=== PATIENT | male | born 1975 | race Hispanic/Latino ===

== ENCOUNTER 2023-04-21 11:07 | Inpatient (IN) | payer OTHER ==
[~2023-04-21] VITALS: Ht 165.1 cm; Wt 70.4 kg
[~2023-04-21 11:07] MED LIST: GLYB-171 PO; TELM40TA8 PO
[2023-04-21 12:30] LABS: BASOPHILS % (AUTO) 0.3 % (0.0-5.0); EOSINOPHILS % (AUTO) 0.7 % (0.0-8.0); LYMPHOCYTES % (AUTO) 16.9 % (21.0-51.0); MEAN CORPUSCULAR HEMOGLOBIN 28.8 pg (27.0-33.0); MEAN CORPUSCULAR HGB CONC 33.7 g/dL (32.0-36.0); MEAN CORPUSCULAR VOLUME 85.5 fL (79-99); MONOCYTES % (AUTO) 7.8 % (3.0-13.0); PLATELET COUNT (AUTO) 163 K/uL (130-400); RED BLOOD CELL COUNT(AUTO) 5.03 MIL/uL (4.50-6.20); RED CELL DISTRIBUTION WIDTH 12.9 % (11.0-15.5); WHITE BLOOD COUNT (AUTO) 11.7 K/uL (4.8-10.8)
[2023-04-21 12:43] LABS: POTASSIUM 4.2 mmol/L (3.5-5.1)
[2023-04-21 12:48] LABS: ALBUMIN 3.6 g/dL (3.5-5.0); TOTAL PROTEIN, SERUM 8.3 g/dL (6.0-8.3)
[2023-04-21 12:58] LABS: APPEARANCE,URINE CLEAR (CLEAR); BILIRUBIN,URINE NEGATIVE (NEGATIVE); COLOR,URINE LIGHT-YELLOW (YELLOW); GLUCOSE, URINE (UA) >=1000 mg/dL (NEGATIVE); KETONES,URINE 40 mg/dL (NEGATIVE); LEUKOCYTE ESTERASE ,URINE NEGATIVE Leu/uL (NEGATIVE); NITRATE,URINE NEGATIVE (NEGATIVE); OCCULT BLOOD,URINE NEGATIVE (NEGATIVE); PH,URINE 5.5 (5.0-8.0); PROTEIN,URINE 20 mg/dL (NEGATIVE); UROBILINOGEN,URINE 0.2 mg/dL (0.2-1.0)
[2023-04-21 13:00] LABS: RBC,URINE 0-1 /HPF (0-1); WBC,URINE 0-1 /HPF (0-1)
[2023-04-21] MEDS ORDERED: CEFTRIAXONE 1G VIAL IVPB ONE (13:00)
[2023-04-21] MEDS ORDERED: 0.9%NACL 1000ML 1,000 ML IV ONE (13:00)
[2023-04-21] MEDS ORDERED: INSULIN HUMULIN R 100 UNIT/ML 3ML IV SCH (13:30)
[2023-04-21] MEDS ORDERED: LEVO750T68 PO (13:52)
[2023-04-21] MEDS ORDERED: ALBUHFA IH (13:52)
[2023-04-21] MEDS ORDERED: BENZ200C53 PO (13:52)
[2023-04-21] MEDS ORDERED: IOHEXOL 350 MG/ML 100ML INFUS..BTL IV ONE (14:57)
[2023-04-21 17:38] LABS: MAGNESIUM 1.8 mg/dL (1.80-2.40)
[2023-04-21 17:55] LABS: CHOLESTEROL 290 mg/dL (<200); HDL CHOLESTEROL 24 mg/dL (29-71); LDL DIRECT 98 mg/dL (0-99); TRIGLYCERIDES 766 mg/dL (30-200)
[2023-04-21] MEDS ORDERED: ACETAMINOPHEN 500 MG TABLET ONE (18:50)
[2023-04-21] MEDS ORDERED: ACETAMINOPHEN 500 MG TABLET PO ONE (19:00)
[2023-04-21] MEDS ORDERED: MORPHINE 2 MG SYG IVP PRN (20:00)
[2023-04-21] MEDS ORDERED: KETOROLAC 15MG/ML VIAL (15MG/ML) IV PRN (20:00)
[2023-04-21] MEDS ORDERED: ACETAMINOPHEN 500 MG TABLET PO PRN (20:00)
[2023-04-21] MEDS ORDERED: FISH1CAP20 PO (20:22)
[2023-04-21] MEDS ORDERED: TELM40TA8 PO (20:22)
[2023-04-21] MEDS ORDERED: METF-444 PO (20:22)
[2023-04-21] MEDS ORDERED: ONDANSETRON 4MG INJ IVP PRN (20:30)
[2023-04-21] MEDS ORDERED: GLUCAGON 1MG KIT 1 MG ML IM PRN (20:30)
[2023-04-21] MEDS ORDERED: DEXTROSE 50%-WATER 50 ML DISP.SYRIN IV PRN (20:30)
[2023-04-21] MEDS ORDERED: INSULIN HUMULIN R 100 UNIT/ML 3ML SQ SCH (20:30)
[2023-04-21] MEDS: PANTOPRAZOLE 40 MG/VIAL IVP SCH (20:56)
[2023-04-21] MEDS: 0.9%NACL 1000ML 1,000 ML IV SCH (20:56)
[2023-04-21] MEDS: CEFTRIAXONE 1G VIAL IVPB SCH (21:54)
[2023-04-21] MEDS: METRONIDAZOLE 500MG/100ML BAG 100 ML IVPB SCH (22:02)
[2023-04-21 22:37] LABS: CREATINE KINASE, TOTAL 29 U/L (21-232); MYOGLOBIN 29 ng/mL (10-92)
[2023-04-22] VITALS (7 sets, daily range): BP systolic 125–149; BP diastolic 78–86
[2023-04-22] MEDS: 0.9%NACL 1000ML 1,000 ML IV SCH ×2 (03:02→21:56)
[2023-04-22 05:12] LABS: BASOPHILS % (AUTO) 0.2 % (0.0-5.0); EOSINOPHILS % (AUTO) 1.9 % (0.0-8.0); HEMATOCRIT 36.1 % (42-54); LYMPHOCYTES % (AUTO) 18.9 % (21.0-51.0); MEAN CORPUSCULAR HEMOGLOBIN 28.8 pg (27.0-33.0); MEAN CORPUSCULAR HGB CONC 33.8 g/dL (32.0-36.0); MEAN CORPUSCULAR VOLUME 85.1 fL (79-99); MONOCYTES % (AUTO) 9.7 % (3.0-13.0); NEUTROPHILS % (AUTO) 68.9 % (40.0-77.0); PLATELET COUNT (AUTO) 143 K/uL (130-400); RED BLOOD CELL COUNT(AUTO) 4.24 MIL/uL (4.50-6.20); RED CELL DISTRIBUTION WIDTH 12.8 % (11.0-15.5); WHITE BLOOD COUNT (AUTO) 8.5 K/uL (4.8-10.8)
[2023-04-22] MEDS: METRONIDAZOLE 500MG/100ML BAG 100 ML IVPB SCH ×3 (05:14→21:56)
[2023-04-22] MEDS: INSULIN HUMULIN R 100 UNIT/ML 3ML SQ SCH ×4 (05:50→22:13)
[2023-04-22 05:52] LABS: ALBUMIN 2.9 g/dL (3.5-5.0); CREATININE 0.8 mg/dL (0.5-1.5); MAGNESIUM 1.7 mg/dL (1.80-2.40); POTASSIUM 3.8 mmol/L (3.5-5.1); TOTAL PROTEIN, SERUM 7.2 g/dL (6.0-8.3)
[2023-04-22 06:13] LABS: CRP QUANTITATIVE 256.2 mg/L (0.00-9.0)
[2023-04-22] MEDS ORDERED: MAGNESIUM 2GM PREMIX 50ML 50 ML IV PRN (08:30)
[2023-04-22] MEDS: CEFTRIAXONE 1G VIAL IVPB SCH ×2 (08:47→21:55)
[2023-04-22] MEDS ORDERED: IOHEXOL 350 MG/ML 100ML INFUS..BTL IV ONE (12:20)
[2023-04-22] MEDS: HEPARIN 5,000 UNIT VIAL SQ SCH ×2 (12:59→22:14)
[2023-04-22] MEDS: FENOFIBRATE NANOCRYSTALLIZED 145 MG TAB PO SCH (13:00)
[2023-04-22] MEDS ORDERED: ATORVASTATIN 40 MG TABLET PO SCH (21:00)
[2023-04-22] MEDS: PANTOPRAZOLE 40 MG/VIAL IVP SCH (21:55)
[2023-04-23 03:30] VITALS: BP 121/68
[2023-04-23 04:59] LABS: HEMATOCRIT 34.6 % (42-54); MEAN CORPUSCULAR HEMOGLOBIN 28.9 pg (27.0-33.0); MEAN CORPUSCULAR HGB CONC 33.8 g/dL (32.0-36.0); MEAN CORPUSCULAR VOLUME 85.4 fL (79-99); RED BLOOD CELL COUNT(AUTO) 4.05 MIL/uL (4.50-6.20); RED CELL DISTRIBUTION WIDTH 12.6 % (11.0-15.5); WHITE BLOOD COUNT (AUTO) 7.7 K/uL (4.8-10.8)
[2023-04-23 05:27] LABS: ALBUMIN 2.7 g/dL (3.5-5.0); CREATININE 0.8 mg/dL (0.5-1.5); POTASSIUM 3.6 mmol/L (3.5-5.1); TOTAL PROTEIN, SERUM 6.7 g/dL (6.0-8.3)
[2023-04-23] MEDS: INSULIN HUMULIN R 100 UNIT/ML 3ML SQ SCH ×2 (05:56→12:00)
[2023-04-23 06:09] LABS: CRP QUANTITATIVE 235.5 mg/L (0.00-9.0)
[2023-04-23] MEDS: METRONIDAZOLE 500MG/100ML BAG 100 ML IVPB SCH (06:26)
[2023-04-23] MEDS: 0.9%NACL 1000ML 1,000 ML IV SCH (06:27)
[2023-04-23 08:00] VITALS: BP 133/78
[2023-04-23] MEDS: HEPARIN 5,000 UNIT VIAL SQ SCH (09:00)
[2023-04-23] MEDS: FENOFIBRATE NANOCRYSTALLIZED 145 MG TAB PO SCH (09:23)
[2023-04-23] MEDS: CEFTRIAXONE 1G VIAL IVPB SCH (09:23)
[2023-04-23] MEDS ORDERED: AMOX1TAB16 PO (11:58)
[2023-04-23] MEDS ORDERED: FENO160T16 PO (11:58)
[2023-04-23] MEDS ORDERED: ATOR40TA69 PO (11:58)
[2023-04-23 12:00] VITALS: BP 130/68
== END 2023-04-23 15:05 | disposition home or self-care (01) | DRG 439 ==
LOC: EDH 11:07 → EDHIP 19:42 → 4BH 04-22 00:30
PROVIDERS: ADMIT Hospitalist; ATTEND Hospitalist
DX: K85.30 Drug induced acute pancreatitis without necrosis or infection (principal); E87.1 Hypo-osmolality and hyponatremia; Z20.822 Contact with and (suspected) exposure to COVID-19; E11.65 Type 2 diabetes mellitus with hyperglycemia; E78.1 Pure hyperglyceridemia; E78.5 Hyperlipidemia, unspecified; E86.0 Dehydration; E86.1 Hypovolemia; I10 Essential (primary) hypertension; K76.0 Fatty (change of) liver, not elsewhere classified; T50.995A Adverse effect of other drugs, medicaments and biological substances, initial encounter; Y92.89 Other specified places as the place of occurrence of the external cause
CPT/HCPCS: 36415; 71045; 71270; 74177; 76705; 80053; 80061; 81001; 82550; 82948; 83605; 83615; 83690; 83735; 83874; 83880; 84145; 84484; 85025; 85027; 85378; 85651; 86140; 87040; 87635; 87804; 93005; 93306; 93356; 93970; C9113; G0378; J0696; J1644; J1815; J3490; J7030; Q9967